=== PATIENT | female | born 1950 | race Caucasian/White ===

== ENCOUNTER → 2019-10-09 | Outpatient (CLI) | payer MEDICARE ==
[~2019-10-09] MED LIST: ALBUTEROL0.09 MG/A2 INH; AVELOX400 MG PO; CALCIUM LACTATE PO; CHERATUSSIN AC240 ML PO; CLARITIN10 MG PO; DRENAMIN PO; ESSENTIAL FATTY ACID PO; FLONASE ALLERG9.9 ML NAS; GLUCOSAMINE HC500 M1 PO; GRAPESEED EXTRACT PO; MUCINEX1200 MG PO; PREDNICOT10 MG PO; PREDNISONE10 MG PO; PROAIR HFA0.09 MG/AC IH; ROBITUSSIN DM 105 ML PO; SELENIUM PO; TAMIFLU 75MG CA75 MG PO; VOLTAREN50 M1 PO; ZITHROMAX Z PA250 MG PO; [UNRECOGNIZED DRUG - OTHER] PO; [UNRECOGNIZED DRUG - OTHER] PO; [UNRECOGNIZED DRUG - OTHER] PO; [UNRECOGNIZED DRUG - OTHER] PO; [UNRECOGNIZED DRUG - REMARK] SL
[2019-10-09 17:33] LABS: BUN 16 mg/dl (7-24); CHLORIDE 109 mmol/L (98-107); POTASSIUM 3.8 mmol/L (3.5-5.1); SODIUM 140 mmol/L (136-145)
== END | disposition home or self-care (01) ==
LOC: LAB 16:02
PROVIDERS: Internal Medicine Cardiovascular Disease
DX: R00.2 Palpitations (principal)

== ENCOUNTER → 2019-10-17 | Outpatient (CLI) | payer MEDICARE ==
--- NOTE | 2019-10-17 12:15 | NUR ---
INFORMED CONSENT OBTAINED FOR STANDARD GXT WITH DR. EVANS. RESTING EKG NSR WITH A SUPINE HR OF 66 WITH BP OF 106/70 AND HR OF 75 WITH BP OF 112/70 IN STANDING POSITION. PT COMPLETED 6:01 OF A DAJA PROTOCOL WITH COMPLETION OF STAGE II AT 2.5 MPH AND 12% GRADE. REACHED A PEAK HR OF 150 WHICH IS 98% OF PREDICTED MAX WITH A PEAK BP OF 128/84. TEST TERMINATED BECAUSE OF FATIGUE. HAD NO CHEST PAIN OR ANY EKG CHANGES. NEGATIVE STANDARD GXT. HAS AN AVERAGE EXERCIST TOLERANCE. LAST RECOVERY HR OF 87 WITH BP OF 118/68. IV DISCONTINUED AND DISCHARGED IN STABLE CONDITION.
== END | disposition home or self-care (01) ==
LOC: CARD 00:21
DX: R00.2 Palpitations (principal); R06.02 Shortness of breath

== ENCOUNTER → 2020-11-08 | Outpatient (CLI) | payer MEDICARE | END | disposition home or self-care (01) | LOC: CARD 09:17 | PROVIDERS: ATTEND Family Medicine | DX: I07.1 Rheumatic tricuspid insufficiency (principal); I10 Essential (primary) hypertension; R00.2 Palpitations ==

== ENCOUNTER → 2021-05-02 | Outpatient (CLI) | payer OTHER | END | disposition home or self-care (01) | LOC: RAD 07:42 | PROVIDERS: ATTEND Family Medicine | DX: K21.9 Gastro-esophageal reflux disease without esophagitis (principal); K44.9 Diaphragmatic hernia without obstruction or gangrene; M50.30 Other cervical disc degeneration, unspecified cervical region; M51.34 Other intervertebral disc degeneration, thoracic region ==

== ENCOUNTER 2022-03-11 17:48 | Emergency (ER) | payer OTHER ==
[2022-03-11 17:59] VITALS: BP 145/70
[2022-03-11 18:42] LABS: BASO # 0.1 10*3/uL (0.0-0.1); BASO % 1.1 % (0.0-1.0); EOS # 0.3 10*3/uL (0.0-0.4); EOS % 4.8 % (1.0-4.0); HEMATOCRIT 43.3 % (37.0-47.0); LYMPH # 1.6 10*3/uL (1.3-4.4); LYMPH % 30.5 % (27.0-41.0); MEAN CELL VOLUME 90.2 fl (81.0-99.0); MEAN CORPUSCULAR HGB 29.6 pg (27.0-31.0); MEAN CORPUSCULAR HGB CONC 32.8 g/dl (33.0-37.0); MEAN PLATELET VOLUME 9.3 fl (9.6-12.3); MONO # 0.5 10*3/uL (0.1-1.0); MONO % 8.4 % (3.0-9.0); PLATELET COUNT AUTOMATED 313 10*3/uL (130-400); RED CELL DISTRI WIDTH 13.9 % (0-14.5); WHITE BLOOD COUNT 5.4 10*3/uL (4.8-10.8)
[2022-03-11 18:58] LABS: ALKALINE PHOSPHATASE 118 U/L (45-117); BUN 10 mg/dl (7-24); CHLORIDE 113 mmol/L (98-107); CREATININE 0.77 mg/dL (0.55-1.02); POTASSIUM 3.8 mmol/L (3.5-5.1); SGPT/ALT 27 U/L (12-78); SODIUM 140 mmol/L (136-145); TOTAL PROTEIN 6.7 gm/dL (6.4-8.2)
[2022-03-11 19:29] LABS: BILIRUBIN Negative (Negative); BLOOD Negative (Negative); CLARITY Clear (Clear); COLOR Yellow (Yellow); GLUCOSE Negative (Negative); KETONE Trace (Negative); LEUKO ESTERASE Trace (Negative); NITRITE Negative (Negative); UROBILINOGEN 0.2 E.U./dl (0.0-1.0)
[2022-03-11 19:56] LABS: BACTERIA TRACE
[2022-03-11] MEDS ORDERED: Meclizine25 MG PO (20:48)
== END 2022-03-11 21:07 | disposition home or self-care (01) ==
LOC: ED 17:48
PROVIDERS: Nurse Practitioner Family
DX: B34.9 Viral infection, unspecified (principal); R42 Dizziness and giddiness; Z88.2 Allergy status to sulfonamides; Z79.899 Other long term (current) drug therapy; Z90.89 Acquired absence of other organs

== ENCOUNTER → 2024-12-10 | Outpatient (CLI) | payer MEDICARE ==
[~2024-12-10] MED LIST changes: +Meclizine25 MG PO
== END | disposition home or self-care (01) ==
LOC: US 12-02 10:00
PROVIDERS: ATTEND Obstetrics & Gynecology
DX: N63.25 Unspecified lump in the left breast, overlapping quadrants (principal); N63.15 Unspecified lump in the right breast, overlapping quadrants; R92.323 Mammographic fibroglandular density, bilateral breasts; Z12.39 Encounter for other screening for malignant neoplasm of breast

== ENCOUNTER → 2025-01-01 | Outpatient (CLI) | payer MEDICARE, OTHER | END | disposition home or self-care (01) | LOC: MAMMO 11:10 | PROVIDERS: ATTEND Obstetrics & Gynecology | DX: Z12.31 Encounter for screening mammogram for malignant neoplasm of breast (principal); R92.323 Mammographic fibroglandular density, bilateral breasts ==

== ENCOUNTER 2025-03-20 16:12 | Emergency (ER) | payer MEDICARE, OTHER ==
[~2025-03-20] VITALS: Ht 154.9 cm; Wt 63.5 kg
[2025-03-20 16:20] VITALS: BP 112/54
[2025-03-20 16:53] LABS: BASO # 0.1 10*3/uL (0.0-0.1); BASO % 1.0 % (0.0-1.0); EOS # 0.2 10*3/uL (0.0-0.4); EOS % 2.7 % (1.0-4.0); MEAN CELL VOLUME 92.5 fl (81.0-99.0); MEAN CORPUSCULAR HGB 29.2 pg (27.0-31.0); MEAN PLATELET VOLUME 9.0 fl (9.6-12.3); MONO # 0.7 10*3/uL (0.1-1.0); MONO % 9.2 % (3.0-9.0); NEUT # 5.3 10*3/uL (2.3-7.9); NEUT % 73.3 % (47.0-73.0); NUCLEATED RED BLOOD CELL 0.0 % (0.0-0.0); NUCLEATED RED BLOOD CELL 0.0 10*3/uL (0.0-0.0); PLATELET COUNT AUTOMATED 301 10*3/uL (130-400); RED CELL DISTRI WIDTH 14.1 % (0-14.5)
[2025-03-20 17:11] LABS: BUN 9 mg/dl (9-23)
[2025-03-20] MEDS ORDERED: ZITHROMAX250 MG PO (17:44)
[2025-03-20] MEDS ORDERED: PREDNISONE20 M1 PO (17:44)
[2025-03-20] MEDS ORDERED: predniSONE 20 MG TAB PO ONE (17:45)
[2025-03-20] MEDS ORDERED: AZITHROMYCIN 250 MG TAB PO ONE (17:45)
== END 2025-03-20 17:48 | disposition home or self-care (01) ==
LOC: ED 16:12
PROVIDERS: Nurse Practitioner Family
DX: J98.4 Other disorders of lung (principal); Z88.2 Allergy status to sulfonamides; Z79.899 Other long term (current) drug therapy; Z90.89 Acquired absence of other organs; Z20.822 Contact with and (suspected) exposure to COVID-19